=== PATIENT | female | born 1930 ===

== ENCOUNTER 2017-06-22 14:31 | Observation (INO) ==
[2017-06-22 15:38] LABS: Basophils # 0.1 10*3/uL (0.0-0.2); Basophils % 1.1 % (0.0-0.8); Eosinophils # 0.4 10*3/uL (0.0-0.87); Eosinophils % 6.1 % (0.00-10.9); Hematocrit 40.6 VOL% (35.7-47.0); Hemoglobin 12.9 GM/DL (12.0-16.0); Immature Granulocytes % 0.2 %; Immature Granulocytes Absolute 0.01 #; Lymphocytes # 1.9 10*3/uL (1.4-4.0); Mean Corpuscular HGB Conc 31.8 GM/DL (32-36); Mean Corpuscular Hemoglobin 32 PG (27-34); Mean Platelet Volume 11.8 FL (9.6-12.0); Monocytes # 0.6 10*3/uL (0.11-0.8); Monocytes % 10.5 % (1.7-12.7); Neutrophils # 2.7 10*3/uL (1.4-7.4); Neutrophils % 48.1 % (38.7-73.9); Platelet Count 232 T/CUMM (130-400); Red Cell Distribution Width 13.2 % (9.3-17.3); White Blood Count 5.7 T/CUMM (4-12)
[2017-06-22 15:58] LABS: Albumin 3.2 G/DL (3.4-5.0); Bilirubin,Total 0.4 MG/DL (0.2-1.0); Calcium 9.2 MG/DL (8.5-10.1); Osmolality,Calculated 285.1 MOS/KG (273-304); Potassium 3.7 MMOL/L (3.5-5.1); Thyroid Stimulating Hormone 0.704 uIU/ml (0.358-3.74); Total Protein 7.8 G/DL (6.4-8.3); Troponin I Only 0.044 NG/ML (0.00-0.045)
[2017-06-22 16:10] LABS: Barbiturates Screen,Urine Negative (Negative); Benzodiazepines Screen,Urine Negative (Negative); Cannabinoid Screen,Urine Negative (Negative); Opiate Screen,Urine Negative (Negative); Phencyclidine Screen,Urine Negative (Negative)
[2017-06-22] MEDS ORDERED: ACETAMINOPHEN 325 MG TABLET PO PRN (16:55)
[2017-06-22] MEDS ORDERED: ONDANSETRON 4 MG/2 ML VIAL IV PRN (16:55)
[2017-06-22] MEDS ORDERED: hydrALAZINE 20 MG/1 ML VIAL IV PRN (17:04)
[2017-06-22] MEDS: ENOXAPARIN 40 MG/0.4 ML SYRINGE SUBCUT SCH (18:40)
[2017-06-22 21:25] LABS: Apearance,Urine CLEAR (Clear); Bilirubin,Urine Negative (Negative); Blood, Urine Negative (Negative); Glucose,Urine (UA) Negative (Negative); Ketones,Urine Negative (Negative); Mucus,Urine Occasional /LPF (Occasional); Nitrite,Urine Negative (Negative); Protein,Urine Negative; RBC,Urine <1 /HPF (0-4); Urine Color Straw (Yellow); Urine Specific Gravity 1.006 (1.001-1.035); Urine Urobilinogen < 2.0 EU/DL (0.2-1.0); WBC,Urine 1 /HPF (0-6)
[2017-06-23 05:47] LABS: Bilirubin,Total 1.2 MG/DL (0.2-1.0); Calcium 8.9 MG/DL (8.5-10.1); Potassium 4.8 MMOL/L (3.5-5.1); Thyroid Stimulating Hormone 0.788 uIU/ml (0.358-3.74); Total Protein 6.5 G/DL (6.4-8.3)
[2017-06-23 06:30] LABS: Hepatitis A Ab IgM Result Negative (Negative); Hepatitis B Core IgM Quant 0.06 Index; Hepatitis B Core IgM Result Negative (Negative); Hepatitis B Surface Ag Quant 0.13 Index; Hepatitis B Surface Ag Result Negative (Negative); Hepatitis C Virus Ab Quant 0.06 Index; Hepatitis C Virus Ab Result Negative (Negative)
[2017-06-23] MEDS: MELOXICAM 7.5 MG TABLET PO SCH (08:56)
[2017-06-23] MEDS: ENALAPRIL 10 MG TABLET PO SCH (08:56)
[2017-06-23] MEDS: PANTOPRAZOLE 40 MG TABLET PO SCH (08:56)
[2017-06-23] MEDS ORDERED: ZALEPLON 5 MG CAPSULE PO PRN (09:00)
[2017-06-23] MEDS: ENOXAPARIN 40 MG/0.4 ML SYRINGE SUBCUT SCH (17:01)
[2017-06-24 05:55] LABS: Albumin 2.8 G/DL (3.4-5.0); Bilirubin,Direct 0.14 MG/DL (0.0-0.20); Bilirubin,Indirect 0.5 MG/DL (0.0-1.0); Bilirubin,Total 0.6 MG/DL (0.2-1.0); Total Protein 6.6 G/DL (6.4-8.3)
[2017-06-24 08:28] VITALS: BP 156/72
[2017-06-24] MEDS: PANTOPRAZOLE 40 MG TABLET PO SCH (09:24)
[2017-06-24] MEDS: MELOXICAM 7.5 MG TABLET PO SCH (09:24)
[2017-06-24] MEDS: ENALAPRIL 10 MG TABLET PO SCH (09:24)
== END 2017-06-24 11:48 | disposition home or self-care (01) ==
LOC: N.ED 14:31 → N.EDINP 14:31 → N.TELES 18:00
PROVIDERS: ADMIT Family Medicine; ATTEND Family Medicine

== ENCOUNTER 2017-11-15 11:43 | Inpatient (IN) ==
[2017-11-15 12:29] LABS: Basophils # 0.1 10*3/uL (0.0-0.2); Basophils % 1.4 % (0.0-0.8); Eosinophils # 0.3 10*3/uL (0.0-0.87); Hematocrit 44.3 VOL% (35.7-47.0); Hemoglobin 14.6 GM/DL (12.0-16.0); Immature Granulocytes % 0.2 %; Immature Granulocytes Absolute 0.01 #; Lymphocytes # 1.6 10*3/uL (1.4-4.0); Lymphocytes % 29.7 % (21.3-54.2); Mean Corpuscular Hemoglobin 32 PG (27-34); Mean Corpuscular Volume 96.5 FL (87-102); Mean Platelet Volume 11.3 FL (9.6-12.0); Monocytes # 0.5 10*3/uL (0.11-0.8); Monocytes % 8.1 % (1.7-12.7); Neutrophils % 54.6 % (38.7-73.9); Platelet Count 254 T/CUMM (130-400); Red Blood Count 4.59 MC/CUMM (3.8-5.5); Red Cell Distribution Width 13.4 % (9.3-17.3); White Blood Count 5.5 T/CUMM (4-12)
[2017-11-15] MEDS ORDERED: ALBUTEROL/IPRATROPIUM 3 ML NEB RESP TX STA (12:55)
[2017-11-15] MEDS ORDERED: FUROSEMIDE 40 MG/4 ML VIAL IV STA (12:55)
[2017-11-15] MEDS ORDERED: hydrALAZINE 20 MG/1 ML VIAL IV STA (12:56)
[2017-11-15 12:57] LABS: Albumin 3.3 G/DL (3.4-5.0); Bilirubin,Total 0.5 MG/DL (0.2-1.0); Calcium 9.1 MG/DL (8.5-10.1); Osmolality,Calculated 287.7 MOS/KG (273-304); Potassium 3.3 MMOL/L (3.5-5.1); Total Protein 7.8 G/DL (6.4-8.3)
[2017-11-15] MEDS ORDERED: SODIUM CHLORIDE 0.9% 1,000 ML IV STA (14:05)
[2017-11-15] MEDS ORDERED: PROMETHAZINE 25 MG/1 ML VIAL IM PRN (15:05)
[2017-11-15] MEDS ORDERED: ACETAMINOPHEN 325 MG TABLET PO PRN (15:05)
[2017-11-15] MEDS ORDERED: POTASSIUM CHLORIDE RIDER 10 MEQ in PREMIX 1 EACH IV PRN (15:05)
[2017-11-15] MEDS ORDERED: DOCUSATE SODIUM 100 MG CAPSULE PO PRN (15:05)
[2017-11-15] MEDS ORDERED: ONDANSETRON 4 MG/2 ML VIAL IV PRN (15:05)
[2017-11-15] MEDS: PANTOPRAZOLE 40 MG TABLET PO SCH (16:03)
[2017-11-15] MEDS: ENOXAPARIN 40 MG/0.4 ML SYRINGE SUBCUT SCH (16:03)
[2017-11-15] MEDS ORDERED: ALBUTEROL 2.5 MG/3 ML NEB RESP TX PRN (18:06)
[2017-11-15] MEDS: traMADol 50 MG TABLET PO SCH (21:00)
[2017-11-15] MEDS: DICLOFENAC SODIUM 50 MG TABLET PO PRN (21:12)
[2017-11-15] MEDS: hydrALAZINE 20 MG/1 ML VIAL IV PRN (23:23)
[2017-11-16 00:28] LABS: Apearance,Urine CLEAR (Clear); Bilirubin,Urine Negative (Negative); Blood, Urine Negative (Negative); Glucose,Urine (UA) Negative (Negative); Hyaline Casts,Urine 3 /LPF (0-3); Ketones,Urine Negative (Negative); Mucus,Urine Occasional /LPF (Occasional); Nitrite,Urine Negative (Negative); Protein,Urine Negative; RBC,Urine <1 /HPF (0-4); Squamous Epithelial Cell,Urine Occasional /HPF (0-10); Urine Color Yellow (Yellow); Urine Specific Gravity 1.008 (1.001-1.035); Urine Urobilinogen < 2.0 EU/DL (0.2-1.0); WBC,Urine 1 /HPF (0-6)
[2017-11-16 02:36] LABS: Basophils # 0.1 10*3/uL (0.0-0.2); Basophils % 0.9 % (0.0-0.8); Eosinophils # 0.1 10*3/uL (0.0-0.87); Eosinophils % 0.8 % (0.00-10.9); Hematocrit 38.9 VOL% (35.7-47.0); Hemoglobin 12.9 GM/DL (12.0-16.0); Immature Granulocytes % 0.1 %; Immature Granulocytes Absolute 0.01 #; Lymphocytes # 2.3 10*3/uL (1.4-4.0); Lymphocytes % 30.2 % (21.3-54.2); Mean Corpuscular HGB Conc 33.2 GM/DL (32-36); Mean Corpuscular Hemoglobin 32 PG (27-34); Mean Corpuscular Volume 96.3 FL (87-102); Mean Platelet Volume 11.4 FL (9.6-12.0); Monocytes # 0.8 10*3/uL (0.11-0.8); Monocytes % 9.8 % (1.7-12.7); Neutrophils # 4.5 10*3/uL (1.4-7.4); Neutrophils % 58.2 % (38.7-73.9); Platelet Count 244 T/CUMM (130-400); Red Blood Count 4.04 MC/CUMM (3.8-5.5); Red Cell Distribution Width 13.5 % (9.3-17.3); White Blood Count 7.8 T/CUMM (4-12)
[2017-11-16 03:08] LABS: Albumin 2.9 G/DL (3.4-5.0); Bilirubin,Total 0.8 MG/DL (0.2-1.0); Calcium 8.4 MG/DL (8.5-10.1); Osmolality,Calculated 284.8 MOS/KG (273-304); Potassium 3.1 MMOL/L (3.5-5.1); Risk Ratio 2.55; Total Protein 6.9 G/DL (6.4-8.3); VLDL CHOLESTEROL 17.8 MG/DL
[2017-11-16] MEDS: POTASSIUM CHLORIDE 20 MEQ TABLET PO PRN ×3 (03:14→08:51)
[2017-11-16] MEDS: ASPIRIN EC 325 MG TABLET PO SCH (08:38)
[2017-11-16] MEDS: DICLOFENAC SODIUM 50 MG TABLET PO PRN ×2 (08:49→21:41)
[2017-11-16] MEDS: FERROUS SULFATE 325 MG TABLET PO SCH (08:50)
[2017-11-16] MEDS: MULTIVITAMIN (CENTRUM) TABLET PO SCH (08:50)
[2017-11-16] MEDS: ENALAPRIL 10 MG TABLET PO SCH (08:50)
[2017-11-16] MEDS: FUROSEMIDE 20 MG TABLET PO SCH (08:51)
[2017-11-16] MEDS: traMADol 50 MG TABLET PO SCH ×2 (08:51→21:42)
[2017-11-16] MEDS: PANTOPRAZOLE 40 MG TABLET PO SCH (08:51)
[2017-11-16] MEDS: hydrALAZINE 20 MG/1 ML VIAL IV PRN ×3 (08:51→21:35)
[2017-11-16] MEDS ORDERED: POTASSIUM GLUCONATE 500 MG TABLET PO SCH (09:00)
[2017-11-16] MEDS ORDERED: SODIUM CHLORIDE 0.9% 1,000 ML IV SCH ×2 (11:00)
[2017-11-16] MEDS: POTASSIUM CHLORIDE 20 MEQ TABLET PO SCH ×2 (13:38→21:41)
[2017-11-16] MEDS: ENOXAPARIN 40 MG/0.4 ML SYRINGE SUBCUT SCH (14:41)
[2017-11-16] MEDS ORDERED: diphenhydrAMINE 50 MG/1 ML VIAL IV PRN (19:13)
[2017-11-16] MEDS ORDERED: diphenhydrAMINE CAP 25 MG CAPSULE PO PRN (19:14)
[2017-11-16] MEDS ORDERED: ALPRAZolam 0.5 MG TABLET PO ONE (21:00)
[2017-11-17] MEDS ORDERED: diphenhydrAMINE CAP 25 MG CAPSULE PO ONE (06:00)
[2017-11-17] MEDS ORDERED: ceFAZolin 1,000 MG in SYRINGE 1 EACH IV ONE (06:00)
[2017-11-17] MEDS ORDERED: ceFAZolin 1,000 MG VIAL IRRIG ONE (06:00)
[2017-11-17] MEDS ORDERED: DIAZEPAM 5 MG TABLET PO ONE (06:00)
[2017-11-17 06:28] LABS: Calcium 8.8 MG/DL (8.5-10.1); Potassium 4.8 MMOL/L (3.5-5.1)
[2017-11-17] MEDS ORDERED: ceFAZolin 1,000 MG VIAL ONE (07:36)
[2017-11-17] MEDS ORDERED: TISSUE ADHESIVE 1 EACH APPLICATOR TOP ONE (07:36)
[2017-11-17] MEDS ORDERED: fentaNYL 100 MCG/2 ML VIAL ONE (07:36)
[2017-11-17] MEDS ORDERED: MIDAZOLAM 2 MG/2 ML VIAL ONE ×2 (07:36→08:01)
[2017-11-17] MEDS ORDERED: LIDOCAINE 1% 20 ML VIAL ONE (07:36)
[2017-11-17] MEDS ORDERED: diphenhydrAMINE 50 MG/1 ML VIAL ONE (08:01)
[2017-11-17] MEDS: FERROUS SULFATE 325 MG TABLET PO SCH (14:25)
[2017-11-17] MEDS: MULTIVITAMIN (CENTRUM) TABLET PO SCH (14:25)
[2017-11-17] MEDS: ENALAPRIL 10 MG TABLET PO SCH (14:25)
[2017-11-17] MEDS: PANTOPRAZOLE 40 MG TABLET PO SCH (14:25)
[2017-11-17] MEDS: traMADol 50 MG TABLET PO SCH ×2 (14:25→21:42)
[2017-11-17] MEDS: FUROSEMIDE 20 MG TABLET PO SCH (14:26)
[2017-11-17] MEDS: ASPIRIN EC 325 MG TABLET PO SCH (14:26)
[2017-11-17] MEDS ORDERED: oxyCODONE/ACETAMINOPHEN 5-325 MG TABLET PO PRN (17:24)
[2017-11-17] MEDS: DICLOFENAC SODIUM 50 MG TABLET PO PRN (21:42)
[2017-11-18] MEDS: MULTIVITAMIN (CENTRUM) TABLET PO SCH (09:06)
[2017-11-18] MEDS: ASPIRIN EC 325 MG TABLET PO SCH (09:06)
[2017-11-18] MEDS: FERROUS SULFATE 325 MG TABLET PO SCH (09:06)
[2017-11-18] MEDS: PANTOPRAZOLE 40 MG TABLET PO SCH (09:06)
[2017-11-18] MEDS: traMADol 50 MG TABLET PO SCH (09:07)
[2017-11-18] MEDS: FUROSEMIDE 20 MG TABLET PO SCH (09:07)
[2017-11-18] MEDS: ENALAPRIL 10 MG TABLET PO SCH (09:08)
[2017-11-18] MEDS: DICLOFENAC SODIUM 50 MG TABLET PO PRN (10:52)
[2017-11-18 17:17] VITALS: BP 151/85
== END 2017-11-18 17:18 | disposition home or self-care (01) | DRG 244 ==
LOC: N.ED 11:43 → N.EDINP 14:44 → N.2W 18:02 → N.TELEN 18:47
PROVIDERS: ADMIT Internal Medicine Infectious Disease; ATTEND Internal Medicine Infectious Disease

== ENCOUNTER 2018-06-19 09:23 | Inpatient (IN) ==
[2018-06-19] MEDS ORDERED: ONDANSETRON 4 MG/2 ML VIAL IV STA (09:50)
[2018-06-19] MEDS ORDERED: MORPHINE 4 MG/1 ML VIAL IV STA (09:50)
[2018-06-19] MEDS ORDERED: NITROGLYCERIN 2% OINT 1 INCH/GM PACK TOP STA (09:50)
[2018-06-19] MEDS ORDERED: FUROSEMIDE 100 MG/10 ML VIAL IV STA (09:50)
[2018-06-19] MEDS ORDERED: ALBUTEROL/IPRATROPIUM 3 ML NEB RESP TX STA (09:50)
[2018-06-19 10:00] LABS: Basophils # 0.1 10*3/uL (0.0-0.2); Basophils % 2.2 % (0.0-0.8); Eosinophils # 0.2 10*3/uL (0.0-0.87); Eosinophils % 4.4 % (0.00-10.9); Hematocrit 40.8 VOL% (35.7-47.0); Hemoglobin 13.2 GM/DL (12.0-16.0); Immature Granulocytes % 0.4 %; Immature Granulocytes Absolute 0.02 #; Mean Corpuscular HGB Conc 32.4 GM/DL (32-36); Mean Corpuscular Hemoglobin 31 PG (27-34); Mean Corpuscular Volume 94.4 FL (87-102); Monocytes # 0.4 10*3/uL (0.11-0.8); Monocytes % 8.4 % (1.7-12.7); Neutrophils # 3.3 10*3/uL (1.4-7.4); Neutrophils % 65.6 % (38.7-73.9); Platelet Count 198 T/CUMM (130-400); Red Blood Count 4.32 MC/CUMM (3.8-5.5); Red Cell Distribution Width 13.1 % (9.3-17.3)
[2018-06-19 10:10] LABS: INR 0.9; PT Patient Result 10.2 SECS
[2018-06-19 10:28] LABS: Apearance,Urine CLEAR (Clear); Bacteria,Urine Occasional /HPF (Few); Bilirubin,Urine Negative (Negative); Blood, Urine Negative (Negative); Glucose,Urine (UA) Negative (Negative); Ketones,Urine Negative (Negative); Nitrite,Urine Negative (Negative); Protein,Urine Negative; RBC,Urine 6 /HPF (0-4); Urine Color Colorless (Yellow); Urine Specific Gravity 1.003 (1.001-1.035); Urine Urobilinogen < 2.0 EU/DL (0.2-1.0)
[2018-06-19 10:30] LABS: Albumin 3.1 G/DL (3.4-5.0); Bilirubin,Total 0.8 MG/DL (0.2-1.0); Calcium 8.7 MG/DL (8.5-10.1); Osmolality,Calculated 276.5 MOS/KG (273-304); Potassium 3.7 MMOL/L (3.5-5.1); Total Protein 7.6 G/DL (6.4-8.3)
[2018-06-19] MEDS ORDERED: guaiFENesin/DM ER 600-30 MG TABLET PO PRN (12:31)
[2018-06-19] MEDS ORDERED: ACETAMINOPHEN 325 MG TABLET PO PRN (12:31)
[2018-06-19] MEDS ORDERED: ONDANSETRON 4 MG/2 ML VIAL IV PRN (12:31)
[2018-06-19] MEDS ORDERED: BENZONATATE 100 MG CAPSULE PO PRN (12:36)
[2018-06-19] MEDS: ALBUTEROL/IPRATROPIUM 3 ML NEB RESP TX SCH ×2 (13:40→20:01)
[2018-06-19] MEDS: ENOXAPARIN 40 MG/0.4 ML SYRINGE SUBCUT SCH (15:12)
[2018-06-19] MEDS ORDERED: DICLOFENAC SODIUM 50 MG TABLET PO PRN (16:00)
[2018-06-19] MEDS ORDERED: FUROSEMIDE 40 MG/4 ML VIAL IV SCH (16:00)
[2018-06-19] MEDS ORDERED: LEVOFLOXACIN 750 MG TABLET PO SCH (16:30)
[2018-06-19] MEDS: traMADol 50 MG TABLET PO SCH ×2 (17:05→21:17)
[2018-06-19] MEDS ORDERED: CARVEDILOL 3.125 MG TABLET PO SCH (21:00)
[2018-06-19] MEDS: CARVEDILOL 6.25 MG TABLET PO SCH (21:21)
[2018-06-20] MEDS: ALBUTEROL/IPRATROPIUM 3 ML NEB RESP TX SCH ×3 (01:56→13:00)
[2018-06-20 05:07] LABS: Basophils # 0.1 10*3/uL (0.0-0.2); Basophils % 1.5 % (0.0-0.8); Eosinophils # 0.3 10*3/uL (0.0-0.87); Eosinophils % 5.4 % (0.00-10.9); Hematocrit 40.7 VOL% (35.7-47.0); Hemoglobin 12.8 GM/DL (12.0-16.0); Immature Granulocytes % 0.4 %; Immature Granulocytes Absolute 0.02 #; Lymphocytes # 1.2 10*3/uL (1.4-4.0); Lymphocytes % 25.7 % (21.3-54.2); Mean Corpuscular HGB Conc 31.4 GM/DL (32-36); Mean Corpuscular Hemoglobin 30 PG (27-34); Mean Corpuscular Volume 95.8 FL (87-102); Monocytes # 0.6 10*3/uL (0.11-0.8); Neutrophils # 2.6 10*3/uL (1.4-7.4); Platelet Count 208 T/CUMM (130-400); Red Blood Count 4.25 MC/CUMM (3.8-5.5); Red Cell Distribution Width 13.2 % (9.3-17.3); White Blood Count 4.8 T/CUMM (4-12)
[2018-06-20 05:29] LABS: Calcium 8.6 MG/DL (8.5-10.1); Calcium 9.2 MG/DL (8.5-10.1); Osmolality,Calculated 277.5 MOS/KG (273-304); Osmolality,Calculated 279.4 MOS/KG (273-304); Potassium 3.8 MMOL/L (3.5-5.1)
[2018-06-20 05:52] LABS: Albumin 2.9 G/DL (3.4-5.0); Bilirubin,Direct 0.12 MG/DL (0.0-0.20); Bilirubin,Indirect 0.5 MG/DL (0.0-1.0); Bilirubin,Total 0.6 MG/DL (0.2-1.0); Total Protein 7.5 G/DL (6.4-8.3)
[2018-06-20] MEDS: CARVEDILOL 6.25 MG TABLET PO SCH ×2 (09:08→17:29)
[2018-06-20] MEDS: ASPIRIN EC 81 MG TABLET PO SCH (09:08)
[2018-06-20] MEDS: PANTOPRAZOLE 40 MG TABLET PO SCH (09:08)
[2018-06-20] MEDS: traMADol 50 MG TABLET PO SCH ×2 (09:09→21:55)
[2018-06-20] MEDS: FERROUS SULFATE 325 MG TABLET PO SCH (09:09)
[2018-06-20] MEDS: CHOLECALCIFEROL 1,000 UNIT TABLET PO SCH (09:09)
[2018-06-20] MEDS: POTASSIUM CHLORIDE 10 MEQ TABLET PO SCH (09:10)
[2018-06-20] MEDS: MULTIVITAMIN (CENTRUM) TABLET PO SCH (09:10)
[2018-06-20] MEDS: ENALAPRIL 10 MG TABLET PO SCH (09:10)
[2018-06-20] MEDS: FUROSEMIDE 40 MG/4 ML VIAL IV SCH (09:11)
[2018-06-20] MEDS ORDERED: POLYETHYLENE GLYCOL POWDER 17 GM PACK PO PRN (09:24)
[2018-06-20] MEDS ORDERED: BISACODYL 5 MG TABLET PO PRN (09:24)
[2018-06-20] MEDS: ENOXAPARIN 40 MG/0.4 ML SYRINGE SUBCUT SCH (13:06)
[2018-06-21 07:55] VITALS: BP 151/94
[2018-06-21] MEDS: ASPIRIN EC 81 MG TABLET PO SCH (09:37)
[2018-06-21] MEDS: CHOLECALCIFEROL 1,000 UNIT TABLET PO SCH (09:37)
[2018-06-21] MEDS: POTASSIUM CHLORIDE 10 MEQ TABLET PO SCH (09:37)
[2018-06-21] MEDS: FERROUS SULFATE 325 MG TABLET PO SCH (09:37)
[2018-06-21] MEDS: CARVEDILOL 6.25 MG TABLET PO SCH (09:38)
[2018-06-21] MEDS: traMADol 50 MG TABLET PO SCH (09:38)
[2018-06-21] MEDS: MULTIVITAMIN (CENTRUM) TABLET PO SCH (09:38)
[2018-06-21] MEDS: PANTOPRAZOLE 40 MG TABLET PO SCH (09:39)
[2018-06-21] MEDS: FUROSEMIDE 40 MG/4 ML VIAL IV SCH (09:39)
[2018-06-21] MEDS: ENALAPRIL 10 MG TABLET PO SCH (09:48)
== END 2018-06-21 10:35 | disposition home or self-care (01) | DRG 293 ==
LOC: N.ED 09:23 → N.EDINP 12:31 → SUATTDRO 12:31 → N.CC 15:18 → N.TELES 06-20 16:13
PROVIDERS: ADMIT Emergency Medicine; ATTEND Internal Medicine

== ENCOUNTER 2021-04-21 09:26 | Inpatient (IN) ==
[2021-04-21] MEDS ORDERED: ONDANSETRON 4 MG/2 ML VIAL IV STA (11:22)
[2021-04-21] MEDS ORDERED: fentaNYL 100 MCG/2 ML VIAL IV STA (11:22)
[2021-04-21 11:38] LABS: Basophils # 0.1 10*3/uL (0.0-0.2); Basophils % 0.6 % (0.0-0.8); Eosinophils % 0.4 % (0.00-10.9); Hematocrit 39.5 VOL% (35.7-47.0); Hemoglobin 12.6 GM/DL (12.0-16.0); Immature Granulocytes % 0.4 %; Immature Granulocytes Absolute 0.03 #; Lymphocytes # 1.5 10*3/uL (1.4-4.0); Lymphocytes % 17.4 % (21.3-54.2); Mean Corpuscular HGB Conc 31.9 GM/DL (32-36); Mean Platelet Volume 11.1 FL (9.6-12.0); Monocytes % 7.8 % (1.7-12.7); Neutrophils % 73.4 % (38.7-73.9); Platelet Count 211 T/CUMM (130-400); Red Blood Count 4.03 MC/CUMM (3.8-5.5); Red Cell Distribution Width 13.8 % (9.3-17.3); White Blood Count 8.3 T/CUMM (4-12)
[2021-04-21 12:02] LABS: Albumin 3.4 G/DL (3.4-5.0); Bilirubin,Total 0.7 MG/DL (0.20-1.00); Calcium 9.6 MG/DL (8.5-10.1); Osmolality,Calculated 275.8 MOS/KG (273-304); Potassium 3.7 MMOL/L (3.5-5.1); Total Protein 7.8 G/DL (6.4-8.2)
[2021-04-21 12:26] LABS: Bilirubin,Urine Negative (Negative); Blood, Urine Small mg/dL (Negative); Glucose,Urine (UA) Negative (Negative); Ketones,Urine 5 mg/dL (Negative); Nitrite,Urine Negative (Negative); Protein,Urine Negative; RBC,Urine 2 /HPF (0-4); Urine Appearance CLEAR (Clear); Urine Color Straw (Yellow); Urine Specific Gravity 1.009 (1.001-1.035); Urine Urobilinogen < 2.0 EU/DL (0.2-1.0)
[2021-04-21 12:37] LABS: Barbiturates Screen,Urine Negative (Negative); Benzodiazepines Screen,Urine Negative (Negative); Cannabinoid Screen,Urine Negative (Negative); Opiate Screen,Urine Negative (Negative); Phencyclidine Screen,Urine Negative (Negative)
[2021-04-21] MEDS ORDERED: methylPREDNISolone SOD SUC 125 MG/2 ML VIAL IV STA (12:48)
[2021-04-21] MEDS ORDERED: METOPROLOL TARTRATE 5 MG/5 ML VIAL IV STA (12:49)
[2021-04-21] MEDS ORDERED: LABETALOL 20 MG/4 ML SYRINGE IV PRN (13:06)
[2021-04-21] MEDS ORDERED: ACETAMINOPHEN 325 MG TABLET PO PRN (13:06)
[2021-04-21] MEDS ORDERED: DEXTROSE 50% 25 GM/50 ML VIAL IV PRN (13:06)
[2021-04-21] MEDS ORDERED: GLUCAGON 1 MG VIAL IM PRN (13:06)
[2021-04-21] MEDS ORDERED: carvediloL 6.25 MG TABLET PO PRN (13:10)
[2021-04-21] MEDS ORDERED: ASPIRIN EC 325 MG TABLET PO STA (13:10)
[2021-04-21 13:32] LABS: Risk Ratio 1.51; VLDL Cholesterol 11.2 MG/DL
[2021-04-21] MEDS ORDERED: ENOXAPARIN 80 MG/0.8 ML SYRINGE SUBCUT STA (14:53)
[2021-04-21] MEDS: ENOXAPARIN 40 MG/0.4 ML SYRINGE SUBCUT SCH (17:14)
[2021-04-21] MEDS ORDERED: ZIPRASIDONE 20 MG/1 ML VIAL IM ONE ×2 (17:27→17:28)
[2021-04-21] MEDS: ATORVASTATIN 40 MG TABLET PO SCH (21:06)
[2021-04-21] MEDS: carvediloL 6.25 MG TABLET PO SCH (21:45)
[2021-04-21] MEDS ORDERED: OLANZapine 10 MG VIAL IM ONE (21:54)
[2021-04-22] MEDS ORDERED: ZIPRASIDONE 20 MG/1 ML VIAL IM PRN (02:17)
[2021-04-22 05:27] LABS: Basophils % 0.2 % (0.0-0.8); Hemoglobin 12.5 GM/DL (12.0-16.0); Immature Granulocytes % 0.5 %; Immature Granulocytes Absolute 0.03 #; Lymphocytes # 1.1 10*3/uL (1.4-4.0); Lymphocytes % 20.1 % (21.3-54.2); Mean Corpuscular HGB Conc 32.1 GM/DL (32-36); Mean Corpuscular Volume 98.2 FL (87-102); Mean Platelet Volume 11.7 FL (9.6-12.0); Neutrophils % 73.2 % (38.7-73.9); Platelet Count 200 T/CUMM (130-400); Red Blood Count 3.97 MC/CUMM (3.8-5.5); Red Cell Distribution Width 13.6 % (9.3-17.3); White Blood Count 5.5 T/CUMM (4-12)
[2021-04-22 06:01] LABS: Calcium 9.6 MG/DL (8.5-10.1); Osmolality,Calculated 280.7 MOS/KG (273-304); Potassium 3.8 MMOL/L (3.5-5.1)
[2021-04-22] MEDS ORDERED: ENALAPRIL 20 MG TABLET PO SCH (09:00)
[2021-04-22] MEDS ORDERED: ASPIRIN 325 MG TABLET PO SCH (09:00)
[2021-04-22] MEDS ORDERED: LORazepam 2 MG/1 ML VIAL IV ONE (09:33)
[2021-04-22] MEDS: ENOXAPARIN 40 MG/0.4 ML SYRINGE SUBCUT SCH (16:50)
[2021-04-22] MEDS: DEXTROSE 5% NACL 0.9% 1,000 ML IV SCH (16:52)
[2021-04-22] MEDS: carvediloL 6.25 MG TABLET PO SCH (16:57)
[2021-04-22] MEDS: MULTIVITAMIN (CENTRUM) TABLET PO SCH (16:57)
[2021-04-22] MEDS: PANTOPRAZOLE 40 MG TABLET PO SCH (16:58)
[2021-04-22] MEDS: FERROUS SULFATE 325 MG TABLET PO SCH (16:58)
[2021-04-22] MEDS: CHOLECALCIFEROL 1,000 UNIT TABLET PO SCH (16:58)
[2021-04-23] MEDS: carvediloL 6.25 MG TABLET PO SCH ×3 (01:22→21:47)
[2021-04-23] MEDS: APIXABAN 2.5 MG TABLET PO SCH ×3 (01:22→21:47)
[2021-04-23] MEDS: ATORVASTATIN 40 MG TABLET PO SCH (01:23)
[2021-04-23] MEDS: DEXTROSE 5% NACL 0.9% 1,000 ML IV SCH (06:43)
[2021-04-23] MEDS ORDERED: ASPIRIN EC 81 MG TABLET PO SCH (09:00)
[2021-04-23] MEDS: MULTIVITAMIN (CENTRUM) TABLET PO SCH (09:45)
[2021-04-23] MEDS: FERROUS SULFATE 325 MG TABLET PO SCH (09:45)
[2021-04-23] MEDS: CHOLECALCIFEROL 1,000 UNIT TABLET PO SCH (09:46)
[2021-04-23] MEDS: PANTOPRAZOLE 40 MG TABLET PO SCH (09:46)
[2021-04-23] MEDS ORDERED: ENALAPRIL 2.5 MG TABLET PO SCH (10:30)
[2021-04-23] MEDS ORDERED: TUBERCULIN SKIN TEST 0.1 ML SYRINGE INTRADERM ONE (13:44)
[2021-04-23] MEDS ORDERED: hydrALAZINE 25 MG TABLET PO PRN (13:56)
[2021-04-23] MEDS: ENALAPRIL 5 MG TABLET PO SCH (15:23)
[2021-04-23] MEDS: ENOXAPARIN 40 MG/0.4 ML SYRINGE SUBCUT SCH (15:23)
[2021-04-23] MEDS ORDERED: LORazepam 0.5 MG TABLET PO PRN (20:18)
[2021-04-23] MEDS ORDERED: carvediloL 12.5 MG TABLET PO SCH (21:00)
[2021-04-23] MEDS ORDERED: ATORVASTATIN 40 MG TABLET PO SCH (21:00)
[2021-04-24] MEDS: DEXTROSE 5% NACL 0.9% 1,000 ML IV SCH (05:41)
[2021-04-24] MEDS: MULTIVITAMIN (CENTRUM) TABLET PO SCH (08:26)
[2021-04-24] MEDS: CHOLECALCIFEROL 1,000 UNIT TABLET PO SCH (08:26)
[2021-04-24] MEDS: PANTOPRAZOLE 40 MG TABLET PO SCH (08:27)
[2021-04-24] MEDS: FERROUS SULFATE 325 MG TABLET PO SCH (08:30)
[2021-04-24] MEDS: APIXABAN 2.5 MG TABLET PO SCH (08:30)
[2021-04-24] MEDS: carvediloL 6.25 MG TABLET PO SCH ×3 (08:30→09:25)
[2021-04-24] MEDS: ENALAPRIL 5 MG TABLET PO SCH ×2 (08:37→09:25)
[2021-04-24] MEDS ORDERED: ASPIRIN EC 81 MG TABLET PO SCH (09:00)
[2021-04-24 12:19] VITALS: BP 145/77
[2021-04-24] MEDS: ENOXAPARIN 40 MG/0.4 ML SYRINGE SUBCUT SCH (13:58)
== END 2021-04-24 15:26 | disposition home health service (06) | DRG 64 ==
LOC: N.ED 09:26 → SUATTDRO 13:06 → N.EDINP 13:06 → N.TELES 18:25
PROVIDERS: ADMIT Internal Medicine; ATTEND Internal Medicine